=== PATIENT | male | born 1945 | race Caucasian/White ===

== ENCOUNTER 2017-07-13 12:56 | Inpatient (IN) | payer OTHER ==
[~2017-07-13] VITALS: Ht 193 cm; Wt 117.3 kg
[~2017-07-13 12:56] MED LIST: ASCORBIC ACID500 MG PO; NOHOMEMEDS; Oyst-Cal D, Oscal W/ PO; PROTONIX40 MG PO; THERAGRAN1 TABLET PO
[2017-07-13 13:50] LABS: HEMATOCRIT 50.8 % (38.0-50.0); MCH 31.6 PG (29.0-34.0); MCHC 34.3 G/DL (30.0-36.0); MCV 92.2 FL (86-99); MEAN PLAT.VOLUME 10.8 uM^3 (9.0-12.4); PLATELET COUNT 191 K/uL (156-360); RBC DIS.WIDTH-CV 12.3 % (11.8-14.6); RED BLOOD COUNT 5.51 M/uL (4.00-5.50); WHITE BLOOD COUNT 9.8 K/uL (4.1-10.2)
[2017-07-13 14:02] LABS: CHLORIDE 106 mEq/L (99-109); POTASSIUM 4.3 mEq/L (3.7-5.4); SODIUM 142 mEq/L (136-147)
[2017-07-13 14:03] LABS: GLUCOSE 119 mg/dL (70-99)
[2017-07-13 14:05] LABS: ANION GAP 10 MEQ/L (2-14)
[2017-07-13 14:07] LABS: GFR ESTIMATE (CALCULATED) > 59 mL/min/
[2017-07-13 14:08] LABS: UREA NITROGEN (BUN) 18 mg/dL (9-23)
[2017-07-13 16:03] LABS: TROP-I INTERPRETATION NEGATIVE; TROPONIN-I < 0.01 ng/mL (0.0-0.30)
[2017-07-13 21:25] VITALS: BP 138/59
[2017-07-14 02:50] VITALS: BP 113/56
[2017-07-14 06:31] LABS: HEMATOCRIT 46.8 % (38.0-50.0); MCH 31.3 PG (29.0-34.0); MCHC 33.5 G/DL (30.0-36.0); MCV 93.2 FL (86-99); MEAN PLAT.VOLUME 11.5 uM^3 (9.0-12.4); PLATELET COUNT 176 K/uL (156-360); RBC DIS.WIDTH-CV 12.2 % (11.8-14.6); RBC DIS.WIDTH-SD 42.4 % (39-53); RED BLOOD COUNT 5.02 M/uL (4.00-5.50); WHITE BLOOD COUNT 9.9 K/uL (4.1-10.2)
[2017-07-14 06:56] LABS: ANION GAP 10 MEQ/L (2-14); CHLORIDE 106 MEQ/L (99-109); GFR ESTIMATE (CALCULATED) > 59 mL/min/; GLUCOSE 152 mg/dL (70-99); POTASSIUM 4.4 MEQ/L (3.7-5.4); SAMPLE HEMOLYSIS CHECK 0; SAMPLE ICTERIC CHECK 0; SAMPLE LIPEMIA CHECK 0; SODIUM 141 MEQ/L (136-147); UREA NITROGEN (BUN) 18 mg/dL (9-23)
[2017-07-14 07:44] VITALS: BP 115/55
[2017-07-14 11:54] VITALS: BP 107/59
[2017-07-14 16:39] VITALS: BP 107/60
[2017-07-14 20:09] VITALS: BP 110/58
[2017-07-15 00:22] VITALS: BP 110/58
[2017-07-15 05:28] VITALS: BP 108/58
[2017-07-15 07:15] VITALS: BP 111/55
[2017-07-15 11:35] VITALS: BP 114/54
[2017-07-15 15:20] VITALS: BP 112/59
[2017-07-15] MEDS ORDERED: ADVAIR HFA120 INHALA IH (18:29)
[2017-07-15] MEDS ORDERED: ANTIVERT25 MG PO (18:29)
[2017-07-15] MEDS ORDERED: FAMOTIDINE40 MG PO (18:30)
[2017-07-15] MEDS ORDERED: MILLIPRED DP5 M1 PO (18:32)
[2017-07-15] MEDS ORDERED: PROAIR HFA8.5 GM IH (18:35)
== END 2017-07-15 19:38 | disposition home or self-care (01) | DRG 192 ==
LOC: EME 12:56 → EDOF 19:53 → 5EAST 19:53 → CANRESERV 19:54 → ENRESERV 19:54 → 5EAST 21:09
PROVIDERS: Family Medicine Sports Medicine
DX: J44.1 Chronic obstructive pulmonary disease with (acute) exacerbation (principal); J44.0 Chronic obstructive pulmonary disease with (acute) lower respiratory infection; J20.9 Acute bronchitis, unspecified; H81.10 Benign paroxysmal vertigo, unspecified ear; H55.00 Unspecified nystagmus; M62.81 Muscle weakness (generalized); H93.19 Tinnitus, unspecified ear; K21.9 Gastro-esophageal reflux disease without esophagitis; K57.90 Diverticulosis of intestine, part unspecified, without perforation or abscess without bleeding; F17.210 Nicotine dependence, cigarettes, uncomplicated; Z87.11 Personal history of peptic ulcer disease
CPT/HCPCS: 70450; 71020; 71275; 80048; 84484; 85027; 90686; 93005; 94640; 94640 76; 94799; 99202; 99281; 99285; J1650; J2405; J2930; J7030; J7512